=== PATIENT | male | born 1965 ===

== ENCOUNTER 2021-04-24 01:17 | Outpatient (CLI) | payer OTHER, SELFPAY ==
--- NOTE | 2021-04-24 07:30 | DI.NM_ITS ---
APPROVED REPORT Exam: Exercise Treadmill Patient Location: Out-Patient Room/Bed: Stress Nurse: Shonna Haley RN Ordering Provider:RANDY BALDWIN, Contact Number: BMI: 27.36 Baseline Rhythm: Sinus Bradycardia Indications: S/P LAD STENT, RECURRENT SYMPTOMS OF CAD Medical History Medical History: GERD, HTN, HLD, CAD Cardiac Medications: Prasugrel, Nitroglycerin, Metoprolol succinate, Atorvastatin, Aspirin, Albuterol sulfate Allergies: NKA Cardiac Risk Factors: HTN, Hyperlipidemia, FHX of CAD, CVD Previous Cardiac Procedures: LAD stent (September 2020) Pretest Chest Pain Characteristics: No chest pain, reports of chest pressure and TALBOT in the morning. Exercise History: Indeterminate Physical Disabilities: None Lung Sounds: Clear to auscultation Heart Sounds: Regular Stress Test Details Test: Exercise stress testing was performed using a Terrence protocol. Nuclear Acquisition: Rest Tc-99m/Stress Tc-99m 1 day Rest Isotope: Tc-99m Sestamibi. Dose: 11.0 Date: 04/24/2021 Injection Time: 1115 Stress Isotope: Tc-99m Sestamibi. Dose: 35.0 Date: 04/24/2021 Injection Time: 1327 HR Resting HR Supine: 54 bpm Max Heart Rate (APMHR): 166.666407 bpm Resting HR Standin bpm Target HR (85% APMHR): 141.613721 bpm Max HR Achieved: 154 bpm % of APMHR: 92.77 Recovery HR: 81 bpm HR response to stress: Normal HR response to stress Comment: Metoprolol succinate not held for test. BP Resting BP Supine: 120/82 mmHg Resting BP Standin/80 mmHg Max BP: 164/80 mmHg Recovery BP: 136/74 mmHg BP response to stress: Normal blood pressure response to stress. ECG Resting ECG: Sinus Bradycardia Ectopy: None Stress ECG: Sinus Tachycardia ST Change: Horizontal ST depression Lead(s): V3, V4 Stage: [address] Deviation: 1 mm Arrhythmia: PACs, single PVC Recovery ECG: Sinus Rhythm Recovery ST Change: No significant ST segment changes noted Recovery Arrhythmia: PACs Clinical Reason for Termination: Fatigue Stress Symptoms: General Fatigue Exercise duration: 10 min54 sec Highest Stage Reached: Stage 4: 4.2 mph at 16% grade. Exercise capacity: 13.71 METs Duong Treadmill Score: 10 Rate Pressure Product: [id number] Stress ECG Conclusion 1. The resting electrocardiogram was within normal limits 2. Patient exercised on the Terrence protocol and completed a workload of 13.71 METS, stopping due to fa tigue 3. Normal heart rate and blood pressure response to exercise. The patient achieved 92% of predicted heart rate for age 4. The electrocardiographic portion of the test was negative for myocardial ischemia Duong Treadmill Score is 10 which is Low risk. Stress Test Summary STAGE Time (mins) Speed (mph) Grade (%) HR BP SYMPTOMS METS Supine 54 120/82 Standing 58 124/80 1 3 1.7 10 96 134/82 4.6 2 6 2.5 12 110 140/78 7 3 9 3.4 14 129 144/84 10.2 1 min recovery 125 164/80 3 min recovery 81 150/76 6 min recovery 81 136/74 MPI Conclusion Myocardial perfusion is normal. There is no ischemia or evidence of prior infarction EF 51%, wall motion is normal Radiologist Interpretation Radiologist agrees with [employer]'s Interpretation. Radiologist Interpretation by: Charlie Carrillo MD Interpretation Date/Time: 04/25/2021 11:01:06
== END 2021-04-24 01:37 ==
PROVIDERS: Visit Provider Internal Medicine Cardiovascular Disease
DX: I25.10 Atherosclerotic heart disease of native coronary artery without angina pectoris (principal); I10 Essential (primary) hypertension; E78.5 Hyperlipidemia, unspecified; Z82.49 Family history of ischemic heart disease and other diseases of the circulatory system; Z95.5 Presence of coronary angioplasty implant and graft
CPT/HCPCS: 78452; 93017

== ENCOUNTER 2024-12-03 08:33 | Outpatient (CLI) | payer OTHER, SELFPAY ==
--- NOTE | 2024-12-03 08:30 | RT.EKG_ITS ---
APPROVED REPORT Exam: Resting ECG Reason for Exam: evaluate cardiac status Patient Location: O HR:66 bpm ECG Measurements Heart Rate 66 AXIS IL 146 P 25 QRSd 111 QRS 10 QT 407 T 15 QTc 427 Conclusion Sinus rhythm...normal P axis, V-rate 50- 99 RSR' in V1 or V2,
== END 2024-12-03 08:34 | disposition home or self-care (01) ==
LOC: DI.CARD 08:33
PROVIDERS: PCP Internal Medicine; Visit Provider Internal Medicine Cardiovascular Disease
DX: I10 Essential (primary) hypertension (principal); I25.10 Atherosclerotic heart disease of native coronary artery without angina pectoris
CPT/HCPCS: 93010